=== PATIENT | female | born 1990 | race Two or more races ===

== ENCOUNTER 2017-07-14 01:44 | Inpatient (IN) | payer OTHER ==
[~2017-07-14] VITALS: Ht 160 cm; Wt 88.9 kg
[2017-07-14] MEDS ORDERED: PRENATABS RX T1 EACH PO (02:15)
== END 2017-07-17 11:49 | DRG 775 ==
LOC: OBS/DEL 01:44 → LDR 08:15 → OB/GYN 08:15 → OBS/DEL 08:15 → LDR 09:16 → OB/GYN 07-15 11:05
PROC: 10E0XZZ Delivery of Products of Conception, External Approach (ICD-10-PCS; principal; 2017-07-15)
PROC: 0KQM0ZZ Repair Perineum Muscle, Open Approach (ICD-10-PCS; 2017-07-15)
PROC: 4A1HXCZ Monitoring of Products of Conception, Cardiac Rate, External Approach (ICD-10-PCS; 2017-07-15)
PROC: 4A033R1 Measurement of Arterial Saturation, Peripheral, Percutaneous Approach (ICD-10-PCS; 2017-07-15)
PROC: 10907ZC Drainage of Amniotic Fluid, Therapeutic from Products of Conception, Via Natural or Artificial Opening (ICD-10-PCS; 2017-07-15)
DX: O70.1 Second degree perineal laceration during delivery (principal); Z37.0 Single live birth; Z3A.39 39 weeks gestation of pregnancy